=== PATIENT | female | born 1970 | race Caucasian/White ===

== ENCOUNTER 2023-05-28 00:10 | Day surgery (SDC) | payer OTHER, SELFPAY ==
[2023-05-27 08:47] VITALS: BMI 22.2
--- NOTE | 2023-05-27 08:52 | PC.NURSE ---
Report to the Outpatient Waiting Room, entrance under the green pavilion located off [facility], at time 1130 on date 05/28/23. Planned Procedure Time: 1330. Time changes happen often and if your time is changed the preop area will call you the afternoon before. - You and your visitor will be asked to self-screen and do not enter if you have any COVID symptoms. - A mask is optional within the hospital at this time. Patients may have clear liquids (water, carbonated beverages, clear teas, apple juice) until 3 hours prior to surgery with a maximum of 20 ounces. - No food from midnight until time of surgery Take the following medications with a SIP of water the morning of surgery: NONE DO NOT STOP ANY OF YOUR OTHER PRESCRIPTION MEDICATIONS PRIOR TO SURGERY ?EXCEPT THE FOLLOWING Medications to discontinue per physician: N/A Date to take last dose: N/A Please no make-up, nail chadian, hairspray, perfume, deodorant, or body powder the day of surgery. No jewelry (including any body piercings) or valuables the day of surgery, leave them at home. Please take a shower or bath the night before, or the morning of, surgery with an antibacterial soap. Wear comfortable, loose fitting clothing. - Jewelry must be removed prior to entering the operating room. Rings and piercings that are not removed may be cut off. - The hospital will not accept responsibility for valuables. - Please leave all valuables, including medications, at home the day of surgery. If you are going home after surgery, a licensed customer service driver must drive you home. - NO public transportation without another adult if you receive anesthesia. - We recommend that an adult stay with you for 24 hours following discharge. - We also recommend that you do not drive, make important decision, drink alcoholic beverages, or take any drugs that were not prescribed by your health care provider for at least 24 hours after your discharge time. Follow any additional instructions given to you from your surgeon. If you or anyone in your household have experienced Covid symptoms in the past week, please notify your surgeon or the nurse liaison at the phone number below for possible testing. Telephone instructions given to PT - PALMIRA WILKS and asked if any additional questions and then verbalized understanding. Patient advised to call surgeon office or pre surgery nurse liaison [phone] if any additional questions.
[2023-05-28] VITALS (8 sets, daily range): BP systolic 104–117; BP diastolic 61–78; PULSE 59–87; RESP 10–18; TEMP 36.3–36.8; O2SAT 95–100
--- NOTE | 2023-05-28 11:46 | P.PNAN_ITS ---
Anes - Initial Pre Proc Eval Procedure: Operation Date: 05/28/23 13:30 Proposed Procedures p Bilateral Breast Implant Exchange - Jaime Westfall MD s Bilateral Breast Mastopexy - Jaime Westfall MD Date/Time: 05/28/23 11:46 Surgeon: Jaime Westfall MD Pre Op Diagnosis: Hx of Breast Aug, Breast Ptosis Patient Data Age: 52 Gender: F Height: 1.55 m Weight: 55 kg Allergies Allergy/AdvReac Type Severity Reaction Status Date / Time hydrocodone AdvReac Vomiting Verified 05/28/23 11:21 oxycodone AdvReac Vomiting Verified 05/28/23 11:21 Sulfa (Sulfonamide AdvReac Vomiting Verified 05/28/23 11:21 Antibiotics) Home Medications Medication Instructions Recorded Confirmed Type dextroamphetamine-amphetamine ER 20 mg PO DAILY 04/16/23 05/27/23 History 20 mg 24hr capsule,extend release spironolactone 100 mg tablet 100 mg PO DAILY 05/27/23 05/27/23 History Laboratory Tests 05/28/23 11:30 Cotinine Pending Patient hx anesthesia problems: post op nausea/vomiting Family hx anesthesia problems: post op nausea/vomiting Results Review: All pre-operative results and documents have been reviewed as part of the pre- operative evaluation. [facility] Past Medical History Medical History Anxiety PONV (postoperative nausea and vomiting) Social History Social History Smoking status: Former smoker Tobacco type: e-cigarettes/vaping Smokeless tobacco user: dissolvable tobacco Smoking end date: 04/19/23 Additional smoking assessment comments: NICOTINE POUCHES Alcohol intake: current Drinks per week: 5 Alcohol use details: WEEKENDS Substance use: never Substance use type: does not use Living arrangements: with family Additional living arrangements comments: [phone] [phone] Spiritual care concerns: No Anes - Eval Final PreProcedure Day of Procedure 05/28/23 11:46 Patient weight: normal Heart: regular rate and rhythm Lungs: clear to auscultation Airway: Mallampati scale class II Neurological: alert and oriented Last oral intake: >/= 8 hours ASA classification: II Emergent: no Anesthetic plan: proceed Anesthesia type and monitoring: general LMA and standard monitoring Results Review: All pre-operative results and documents have been reviewed as part of the pre- operative evaluation. Informed Consent: The patient's anesthetic plan and its attendant risks and benefits were discussed with the patient/family/POA. Questions were solicited and answers provided to the satisfaction of the patient/family/POA.
[2023-05-28] MEDS: LACTATED RINGERS 1,000 ML 30 ML IV CONT ×2 (11:50→14:59)
[2023-05-28 11:51] LABS: Urine Cotinine NEGATIVE
--- NOTE | 2023-05-28 12:09 | WPDHPUPDATE1 ---
History and Physical Update Update Date/Time: 05/28/23 12:09 History and Physical has been reviewed, including an updated exam of the patient. There are NO changes in the patient's condition. Risks, benefits, and alternatives have been discussed and questions answered. Patient agrees to proceed with procedure.
--- NOTE | 2023-05-28 12:10 | W.PM.PROC2 ---
Procedure Note - Detailed Date of Procedure 05/28/23 Pre-op Diagnosis Hx of Breast Aug, Breast Ptosis Post-op Diagnosis Same Procedure Performed Bilateral breast implant exchange with mastopexy Surgeon Jaime Westfall MD Anesthesia General Findings No hematoma or seroma noted Capsule soft with no worrisome features Total submuscular (maintained same plane) with capsule adherent to muscle Previous implants: Saline 310 cc textured Unknown fill volume. New Implants: Bilateral saline 420cc filled to 450 cc Right - REF# [id number] SN [id number] Left- REF# [id number] SN [id number] Description of Procedure She is here today for bilateral breast implant exchange with mastopexy. Previously and again today the risks, benefits, alternatives were discussed in extensive detail. I wanted her to be very realistic about the risks involved as well as expectations. We discussed aftercare and what to monitor for. Made sure answered all of her questions to her satisfaction today and consent was obtained. Marked in the preoperative holding area with their verification. The patient was taken to the operating room placed supine on the operating table. Anesthesia was provided by anesthesiology. A surgical time-out was taken. We cleansed the skin and 1% lidocaine and 0.25% Marcaine with epinephrine was used anesthetize as a field block. She was prepped and draped in a standard sterile fashion. Tegaderm nipple Godoy were placed. A 15 blade used to make an incision just superior to the inframammary fold leaving a cusp of de-epithelized tissue at the t junction. Dissection was continued until the capsule was identified and entered. Previous implants removed. Copiously irrigated with 3L saline on TUR tubing. Capsulotomy completed based on preoperative planning along medial / superior aspect bilateral. I then copiously irrigated with saline solution and verified a strict hemostasis. Next the use a triple antibiotic and Betadine containing solution to irrigate the pocket. I washed my gloves with the triple antibiotic and Betadine solution. We washed the implant immediately upon opening it with this solution and only opened it when we needed it. I used implant funnel and no-touch technique. Implants opened on back table and immediatly irrigated with betadine solution. Air removed and introduced into the pocket. Filled with a fill kit to the volumes above. Once at the appropriate fill was completed the fill kit was removed and verified the valve was seated. Having verified positioning of the implant this was closed using 2-0 PDS. I tailor tacked the breast into position. Placed her in a sitting position. Verified the nipple-areolar location based on preoperative planning as well as intraoperative observations and measurements in full agreement. She was placed supine. I de-epithelialized the pedicle. I then removed the inferior central portion of the breast need making sure the implant was well protected. I elevated medial and lateral tissue flaps as well for planned closure. I closed along the IMF with 2-0 PDS. Along the vertical with 2-0 PDS. I closed around the areola with 3-0 strata fix. 3-0 Monocryl along the vertical. 3-0 Stratafix along the IMF. I finally closed everything with running subcuticular 4-0 Monocryl and tissue glue. Fluffs and surgical bra were placed. Estimated Blood Loss 50 Drains No Packing No Pathology None sent Complications No immediate complications Condition Stable Disposition PACU
[2023-05-28] MEDS: SCOPOLAMINE 1 MG PATCH 1 PATCH TRANSDERM (12:11)
[2023-05-28] MEDS: ceFAZolin 2 GM/D5W 50 ML 2 GM/50 ML BAG IVPB (12:25)
[2023-05-28] MEDS: BUPivacaine HCL 0.25% PF 30 ML VIAL INFILTRATE (12:27)
[2023-05-28] MEDS: LIDO 1%/EPINEPHRINE 1:100,000 50 ML VIAL 30 ML INFILTRATE (12:27)
[2023-05-28] MEDS: NACL 0.9% IRRIG POUR BOTTLE 900 ML, GENTAMICIN SULFATE INJ 160 MG, ceFAZolin 2 GM, POVI... IRRIGATION (12:27)
[2023-05-28] MEDS: TRANEXAMIC ACID 1,000MG/ISO100 1,000 MG/100 ML BAG 200 MG IVPB (12:34)
[2023-05-28] MEDS: fentaNYL CITRATE INJ (*CRX) 100 MCG/2 ML VIAL 25 MCG IV PUSH ×2 (15:14→15:16)
== END 2023-05-28 16:30 | disposition home or self-care (01) ==
PROVIDERS: Visit Provider Surgery Plastic and Reconstructive Surgery
PROC: (CPT 19325; principal; 2023-05-28 13:30)
PROC: (CPT 19316; 2023-05-28 13:30)
DX: Z41.1 Encounter for cosmetic surgery (principal); N64.81 Ptosis of breast; F17.290 Nicotine dependence, other tobacco product, uncomplicated
CPT/HCPCS: 19325; 19316; 19328; 80307; A9270; J0171; J0690; J1100; J1170; J1580; J2250; J2405; J2704; J3010; J7120

== ENCOUNTER 2024-04-07 10:29 | Outpatient (CLI) | payer BC, SELFPAY ==
--- NOTE | ~2024-04-07 | XR_ITS ---
EXAMINATION: XR wrist LT min 3V DATE: 04/07/2024 10:45 INDICATION: Pain at left first metacarpophalangeal joint. TECHNIQUE: 4 views of left wrist were obtained. COMPARISON: None. FINDINGS: Alignment is normal. No fracture. There is mild osteoarthritis of first carpometacarpal kath nt. IMPRESSION: 1. Mild osteoarthritis of first carpometacarpal joint. Reviewed, dictated and finalized at location B.
== END 2024-04-07 10:30 | disposition home or self-care (01) ==
LOC: GOSHIMG 10:31
PROVIDERS: Visit Provider Chiropractor
DX: M19.032 Primary osteoarthritis, left wrist (principal)
CPT/HCPCS: 73110